=== PATIENT | female | born 1990 | race Caucasian/White ===

== ENCOUNTER 2016-08-25 21:06 | Emergency (ER) | payer MEDICAID ==
[2016-08-25 21:35] LABS: BASOPHIL# 0.1 X 10^3uL (0.0-0.1); EOSINOPHILS 1.4 % (0.0-6.0); EOSINOPHILS# 0.1 X 10^3uL (0.0-0.4); HEMATOCRIT 46.6 % (36.0-48.0); HEMOGLOBIN 16.5 g/dL (12.0-16.0); LYMPHOCYTES 29.7 % (20.0-40.0); MEAN CELL VOLUME 86.6 fL (80.0-100.0); MEAN CORPUS. HGB CONCENTRATION 35.4 g/dL (32.0-36.0); MEAN CORPUSCULAR HEMOGLOBIN 30.6 pg (29.0-35.0); MONOCYTES 4.7 % (2.0-10.0); MONOCYTES# 0.3 X 10^3uL (0.2-1.0); NEUTROPHILS 63.2 % (54.0-75.0); NEUTROPHILS# 4.2 X 10^3uL (2.6-6.7); PLATELET COUNT 234 X 10^3uL (130-440); RED BLOOD COUNT 5.38 X 10^6uL (4.20-6.10); RED CELL DISTRIBUTION WIDTH 12.4 % (11.5-14.5); WHITE BLOOD COUNT 6.7 X 10^3uL (3.9-10.7)
[2016-08-25 21:46] LABS: ALBUMIN 4.9 g/dL (3.5-5.0); ALKALINE PHOSPHATASE 54 U/L (38-126); ALT 31 U/L (9-52); AST 23 U/L (14-36); BILIRUBIN, DIRECT 0.1 mg/dL (0.0-0.4); BILIRUBIN, TOTAL 0.8 mg/dL (0.2-1.3); BLOOD UREA NITROGEN 17 mg/dL (7-17); CALCIUM 8.9 mg/dL (8.4-10.2); CHLORIDE 105 mmol/L (98-107); CREATININE 0.7 mg/dL (0.5-1.0); EST GLOMERULAR FILTRATION RATE > 60 mL/min; GLUCOSE 87 mg/dL (70-100); LIPASE 147 U/L (23-300); POTASSIUM 3.4 mmol/L (3.5-5.1); SODIUM 146 mmol/L (137-145); TOTAL PROTEIN 8.2 g/dL (6.3-8.2)
[2016-08-25 21:50] LABS: ETHYL ALCOHOL < 10 mg/dL (<10)
[2016-08-25 22:15] LABS: THYROID STIMULATING HORMONE 2.29 uIU/mL (0.47-4.68)
[2016-08-25 22:17] LABS: SALICYLATE < 1.0 mg/dL (<20.0)
[2016-08-25 22:18] LABS: ACETAMINOPHEN < 10.0 ug/mL (10.0-30.0)
[2016-08-25 22:24] LABS: URINE APPEARANCE CLEAR; URINE COLOR YELLOW
[2016-08-25 22:25] LABS: URINE GLUCOSE NORMAL (NEGATIVE); URINE KETONE 100mg/dL (3+) (NEGATIVE); URINE LEUKOCYTE ESTERASE NEGATIVE (NEGATIVE); URINE NITRITE NEGATIVE (NEGATIVE); URINE PROTEIN 10mg/dL (trace) (NEG - TRACE)
[2016-08-25 22:26] LABS: URINE BILIRUBIN NEGATIVE (NEGATIVE); URINE BLOOD TRACE (NEGATIVE); URINE UROBILINOGEN 0.2mg/dL (Normal) (NEG-1mg/dL)
--- NOTE | 2016-08-25 22:42 | ER PHYSICIAN DOCUMENTATION ---
Physician Documentation [facility] Name:Jayda Martin Age:26 yrs Sex:Female :1990 Arrival Date:08/25/2016 Time:21:06 Bed5 Private MD:No PCP, Identified ED Xinjosé antonioKwabena Disposition: 08/25 22:18 Chart complete. tl1 Disposition: 08/25/16 22:18 Transfer ordered to [facility]. Diagnosis is Major Depression with Suicidal Ideation. - Reason for transfer: Specialty. - Accepting physician is Billy Landaverde. - Condition is Fair. - Problem is an acute exacerbation. - Symptoms are unchanged. COBRA Form completed? Yes Transfer - Mode of Transportation Ambulance HPI: 21:43 This 26 yrs old Female presents to ER via Private Vehicle with complaints of tl1 Suicidal Ideation. 21:43 The patient presents to the emergency department with depression, suicide ideation, and tl1 the patient has a plan, to hang oneself. Onset: The symptom(s)/episode began/occurred gradually, 6 week(s) ago. Past psychiatric history: Prior diagnosis: the patient has had a prior suicide gesture, last year. Historical: - Allergies: No known drug Allergies; - Home Meds: 1. None - PMHx: DEPRESSION; ANXIETY; - PSHx: None; - Tetanus: < 10 years. - Ebola Screening: : Patient negative for fever greater than or equal to 101.5 degrees Fahrenheit, and additional compatible Ebola Virus Disease symptoms. - Immunization history: Flu Vaccine < 1 year. - Social history: Smoking status: Patient states was never smoker of tobacco. ROS: 21:45 Constitutional: Negative for fever, chills, and weight loss. tl1 Cardiovascular: Negative for chest pain, palpitations, and edema. Respiratory: Negative for shortness of breath, cough, wheezing, and pleuritic chest pain. Abdomen/GI: Negative for abdominal pain, nausea, vomiting, diarrhea, and constipation. Skin: Negative for injury, rash, and discoloration. 21:45 Neuro: Negative for headache, weakness, numbness, tingling, and seizure. tl1 21:45 Psych: Positive for anxiety, depression, suicidal ideation, Negative for drug dependence, alcohol dependence, auditory hallucinations, visual hallucinations, homicidal ideation. Exam: Constitutional: This is a well developed, well nourished patient who is awake, alert, and in no acute distress. Head/Face: Normocephalic, atraumatic. Eyes: Pupils equal round and reactive to light, extra-ocular motions intact. Lids and lashes normal. Conjunctiva and sclera are non-icteric and not injected. Cornea within normal limits. Periorbital areas with no swelling, redness, or edema. Cardiovascular: Regular rate and rhythm with a normal S1 and S2. No gallops, murmurs, or rubs. Normal PMI, no JVD. No pulse deficits. Respiratory: Lungs have equal breath sounds bilaterally, clear to auscultation and percussion. No rales, rhonchi or wheezes noted. No increased work of breathing, no retractions or nasal flaring. Abdomen/GI: Soft, non-tender, with normal bowel sounds. No distension or tympany. No guarding or rebound. No evidence of tenderness throughout. Skin: Warm, dry with normal turgor. Normal color with no rashes, no lesions, and no evidence of cellulitis. MS/ Extremity: Pulses equal, no cyanosis. Neurovascular intact. Full, normal range of motion. 21:46 Neuro: Awake and alert, GCS 15, oriented to person, place, time, and situation. tl1 Cranial nerves II-XII grossly intact. Motor strength 5/5 in all extremities. Sensory grossly intact. Cerebellar exam normal. Normal gait. 21:46 Psych: Behavior/mood is pleasant, cooperative, depressed, Affect is flat, Oriented to person, place, time, Patient having thoughts of suicide. Plan for suicide is Hang herself Judgement / Insight is normal. Memory is normal. Delusions/hallucinations are not present. Vital Signs: 21:25 BP 132 / 77; Pulse 82; Resp 16; Pulse Ox 96% on R/A; Weight 58.06 kg; Height 5 ft. 7 rh in. (170.18 cm); Pain 0/10; 22:01 BP 113 / 74; Pulse 70; Resp 16; Pulse Ox 97% on R/A; Pain 0/10; rh 21:25 Body Mass Index 20.05 (58.06 kg, 170.18 cm) rh MDM: 21:08 Patient medically screened. tl1 21:59 Differential diagnosis: depression. Data reviewed: vital signs, nurses notes, lab test tl1 result(s), CBC, electrolytes, hepatic panel, urinalysis, urine drug screen, and as a result, I will *Transfer Patient. Test interpretation: by ED physician or midlevel provider:. Counseling: I had a detailed discussion with the patient and/or guardian regarding: the historical points, exam findings, and any diagnostic results supporting the discharge/admit diagnosis, lab results, the need to transfer to another facility, [facility] not immediately have the required specialist. Response to treatment: There is no appreciated change of the patient's symptoms at this time. Physician consultation: Billy Landaverde was called at 21:40, was contacted at 21:44, regarding admission, and will see patient in ED, at [facility]. ED course: Calm and cooperative, docile. Willing to be admitted. I placed her on an M-1 hold. discussed her care with Dr Billy Landaverde who kindly accepted her in transfer to [facility] for further evaluation and care.. 08/25 21:46 Order name: CBC AUTO DIF, MDIF/RMOR IF IND; Complete Time: 22:20 EDKS 08/25 22:19 Interpretation: WHITE BLOOD COUNT 6.7; HEMOGLOBIN 16.5; HEMATOCRIT 46.6; PLATELET COUNT tl1 234; NEUTROPHILS 63.2; LYMPHOCYTES 29.7; MONOCYTES 4.7; EOSINOPHILS 1.4; SODIUM 146; POTASSIUM 3.4; BLOOD UREA NITROGEN 17; CREATININE 0.7; ETHYL ALCOHOL < 10. 08/25 22:21 Order name: URINE DRUG SCREEN, QUAL; Complete Time: 22:40 EDKS 08/25 21:10 Order name: Continuous Cardiac Monitoring; Complete Time: : 1 08/25 21:10 Order name: I & O; Complete Time: 21: 1 08/25 21:10 Order name: Iv Saline Lock; Complete Time: 21:21 1 08/25 21:10 Order name: NPO; Complete Time: 21:21 1 08/25 21:10 Order name: Pulse Ox Continuous; Complete Time: 21:21 1 08/25 21:10 Order name: Suicide Precautions; Complete Time: 21:21 tl1 Dispensed Medications: No medications were administered Signatures: Kwabena Hurley MD MD tl1 Germania Gustafson
--- NOTE | 2016-08-25 22:42 | ER NURSING DOCUMENTATION ---
Nurse's Notes [facility] Name:Jayda Martin Age:26 yrs Sex:Female :1990 Arrival Date:08/25/2016 Time:21:06 Bed5 Private MD:No PCP, Identified Diagnosis:Major Depression with Suicidal Ideation Presentation: 08/25 21:09 Acuity: DELLA 2 rh 21:09 Presenting complaint: Patient states: Pt was brought in by her coworkers. They noticed rh that she has been under an extreme amount of stress and has been picking at her skin/creating hesitation makes on her arms again. Pt has a history of suicide and attempted to hang herself last month and slit her wrists last week. Tonight she was having thoughts of suicide, however she did not attempt anything tonight. Transition of care: Other [facility]. 21:09 Method Of Arrival: Private Vehicle Triage Assessment: 21:24 General: Appears in no apparent distress, Behavior is cooperative, crying. Pain: Denies rh pain. EENT: Oral mucosa is moist. Neuro: Level of Consciousness is awake, alert, obeys commands. Cardiovascular: Capillary refill < 3 seconds Chest pain is denied. Respiratory: Airway is patent. GI: Denies nausea. : No deficits noted. 21:24 Derm: Skin is intact, is healthy with good turgor, Pt has hesitation montero on both rh arms, some are scarred over, some scabbed and some are more recent. Skin is pink, warm & dry. Historical: - Allergies: No known drug Allergies; - Home Meds: 1. None - PMHx: DEPRESSION; ANXIETY; - PSHx: None; - Tetanus: < 10 years. - Ebola Screening: : Patient negative for fever greater than or equal to 101.5 degrees Fahrenheit, and additional compatible Ebola Virus Disease symptoms. - Immunization history: Flu Vaccine < 1 year. - Social history: Smoking status: Patient states was never smoker of tobacco. Screenin:26 Infectious Disease Risk None. Abuse screen: Denies threats or abuse. Denies injuries rh from another. Nutritional screening: No deficits noted. Suicide Risk Assessment: Suicidal Thinking Present - Yes ( 2 points), Past Attempts - Yes (1 point), Family History of Suicide - No (0 points), Credible Suicide Plan - Yes (3 points), Means to Kill Self Available - Yes (3 points), Has Serious Health Problem - Yes (1 point), Lives Alone - No (0 points). Assessment: 21:25 See Triage Assessment done by same RN. rh Psych: 21:26 Subjective: Patient's mood is sad, Having thoughts of suicide. Plan for suicide is Pt rh planned to slit her wrists. Objective: Patient is cooperative, Speech is normal, Affect is appropriate, Patient has mutilated themselves by Pt has hesitation montero on both of her arms. Interventions: Removed personal items and placed in bag. Patient placed in hospital gown. Belonging list filled out. Vital Signs: 21:25 BP 132 / 77; Pulse 82; Resp 16; Pulse Ox 96% on R/A; Weight 58.06 kg; Height 5 ft. 7 rh in. (170.18 cm); Pain 0/10; 22:01 BP 113 / 74; Pulse 70; Resp 16; Pulse Ox 97% on R/A; Pain 0/10; rh 21:25 Body Mass Index 20.05 (58.06 kg, 170.18 cm) rh ED Course: 21:07 Patient arrived in ED. em2 21:07 No PCP, Identified is Private Physician. em2 21:07 Notified ED Physician of patient's arrival and chief complaint. Dr. Hurley notified. rh 21:08 Kwabena Hurley MD is Attending Physician. tl1 21:09 Germania Gustafson is Primary Nurse. rh 21:09 Triage completed. rh 21:15 surveillance system monitor on. Pulse ox on. NIBP on. rh 21:18 Inserted peripheral IV: 20 gauge in right antecubital area and blood collected. rh 21:26 Valuables inventory done. pants shirt/blouse shoes underwear bra hat Other Glasses and rh water bottle Patient has correct armband on for positive identification. Placed in gown. Bed in low position. Call light in reach. Side rails up X 1. Administered Medications: No medications were administered Outcome: 22:18 ER care complete, transfer ordered by . tl1 22:38 [facility] rh Acceptance Time: August 25, 2016 at 22:00 Patient's face sheet was faxed to accepting facility. Face Sheet included patient's name, address, age, gender, contact information and insurance information. Patient will be transported by: [facility] ground. Nurse and Physician Charting and Notes were sent to Accepting Facility. All tests and/or procedures with results, if applicable, were sent to accepting facility. 22:38 Condition: stable 22:38 Discharge Assessment: Patient awake, alert and oriented x 3. No cognitive and/or functional deficits noted. Patient verbalized understanding of disposition instructions. 22:38 Discharge instructions given to patient, Instructed on need for transfer 22:41 Patient left the ED. rh 22:53 Transferred: Report called to: ANDREWS RUIZ RN AT [facility] ED rh Signatures: Janelle Lopez em2 Kwabena Hurley MD MD tl1 Germania Gustafson
== END 2016-08-25 22:42 | disposition short-term general hospital (02) ==
LOC: ER 21:06
DX: F32.9 Major depressive disorder, single episode, unspecified (principal); R45.851 Suicidal ideations; Z74.3 Need for continuous supervision
CPT/HCPCS: 80048; 80076; 80305; 80307; 80320; 80329; 81003; 83690; 84443; 84703; 85025; 99285